=== PATIENT | male | born 1980 | race Caucasian/White ===

== ENCOUNTER 2024-02-17 07:52 | Outpatient (CLI) | payer BC, SELFPAY ==
--- NOTE | ~2024-02-17 | US_ITS ---
COMPLETE ABDOMINAL ULTRASOUND Ordering provider: Jessica Parikh History: . Abnormal LFT's . Comparison: None. FINDINGS: LIVER: Normal size and echotexture. No focal hepatic lesions or perihepatic fluid collections are paulino ntified. GALLBLADDER: Unremarkable. No evidence for stones, sludge, gallbladder wall thickening or pericholecy stic fluid collections. The wall thicknesses 0.2 cm. A negative sonographic Villafuerte's sign was noted. BILIARY DUCTS: No evidence for intra or extrahepatic biliary dilation. Common bile duct measures 3 mm in diameter which is within normal limits. PANCREAS: Normal echotexture and size. KIDNEYS: Right measures 9.3 cm in length . There is no evidence for hydronephrosis, solid renal mass, renal calculi or perinephric fluid collections. No renal cysts. UPPER ABDOMINAL AORTA: Normal in caliber. IVC: Patent. FREE FLUID: None. IMPRESSION: 1. Unremarkable complete ultrasound of the abdomen. Reviewed, dictated and finalized at location A.
== END 2024-02-17 07:53 ==
DX: R79.89 Other specified abnormal findings of blood chemistry (principal)
CPT/HCPCS: 76705